=== PATIENT | female | born 1985 | race Two or more races ===

== ENCOUNTER → 2024-12-01 | Outpatient (CLI) | payer OTHER, SELFPAY ==
--- NOTE | 2024-12-01 11:00 | XR_ITS ---
Examination: Breast ultrasound, unilateral, right complete Date and time of exam: December 01, 2024 1113 hours INDICATIONS: Palpable lump right breast note is beginning 5 weeks ago Technique: Real-time sandoval scale ultrasonographic imaging performed right breast including all 4 quadrants as well as nipple retroareolar and axillary region. Findings: Aggregate of cysts in the 10:00 position 5.7 x 1.7 x 5.4 cm IMPRESSION: BI-RADS Category 3: Probably benign cysts as above 3- 6 month right breast sonogram follow-up recommended
--- NOTE | 2024-12-01 11:06 | XR_ITS ---
Examination: Diagnostic digital mammography, bilateral Computer aided detection 3-D breast Tomosynthesis, bilateral Date and time of exam: December 01, 2024 1126 hours INDICATIONS: Palpable nodule right breast 10:00 position note is beginning 5 weeks ago Technique: Nonmagnified MLO, CC views of the breasts to been obtained, reconstructed from 3-D Tomosynthesis images. R2 computer aided detection program utilized for evaluation of suspicious masses and/or abnormal calcifications. 3-D Tomosynthesis images obtained. Findings: The breasts are heterogeneously dense, which may obscure small masses 10:00 circumscribed mass 5.4 cm in dimension corresponding to aggregate of cysts in the 10:00 position right breast on the right breast sonogram today Impression: BI-RADS Category 2: Benign findings, recommend yearly follow-up mammography Please see the right breast sonogram report today recommending six-month right breast sonogram follow-up to document stability of the aggregate of cysts in the 10:00 position right breast.
== END | disposition home or self-care (01) ==
PROVIDERS: PCP Student in an Organized Health Care Education/Training Program; Referring Provider Student in an Organized Health Care Education/Training Program; Visit Provider Student in an Organized Health Care Education/Training Program
DX: R92.323 Mammographic fibroglandular density, bilateral breasts (principal); N60.01 Solitary cyst of right breast
CPT/HCPCS: 76641; 77062; 77066; G0279

== ENCOUNTER → 2025-01-05 | Outpatient (CLI) | payer OTHER, SELFPAY ==
--- NOTE | 2025-01-05 10:45 | XR_ITS ---
Examination: Pelvic ultrasound, transabdominal, complete Technique: Transabdominal ultrasound of the pelvis performed using grayscale imaging Date and time of exam: January 05, 2025 1110 hrs. Indications: Ultrasound February 18, 2024 cervical mass 18 x 14 x 17 mm Findings: Uterus 11.3 cm endometrial stripe 17 mm Cysts in the cervix Right ovary 2.6 cm arterial flow Left ovary 5.5 cm arterial flow to millimeters follicular cyst Fluid around the left ovary Impression: Follow-up transvaginal pelvic sonography follow-up is recommended to better assess the cervix
--- NOTE | 2025-01-05 10:45 | XR_ITS ---
Examination: Transvaginal ultrasound of the pelvis, complete Technique: Transvaginal sonographic images pelvis performed using sandoval scale imaging Exam date and time: January 05, 2025 1110 hrs. Indications: Cervical mass on ultrasound examination February 18, 2024 Findings: Uterus 8.9 cm endometrial stripe 1.8 cm Cervical cysts, no solid cervical mass Right ovary 2.3 cm arterial flow with follicles Left ovary 4.0 cm arterial flow involuting 3 cm cyst 12 mm follicular cyst Impression: Benign cervical cysts, no solid cervical lesion noted.
== END | disposition home or self-care (01) ==
PROVIDERS: PCP Family Medicine; Referring Provider Family Medicine; Visit Provider Family Medicine
DX: N88.8 Other specified noninflammatory disorders of cervix uteri (principal)
CPT/HCPCS: 76830; 76856